=== PATIENT | male | born 1960 | race Caucasian/White ===

== ENCOUNTER → 2016-12-25 | Outpatient (CLI) | payer OTHER | LOC: RAD 06:47 | DX: M54.5 Low back pain (principal); Q76.2 Congenital spondylolisthesis; M51.86 Other intervertebral disc disorders, lumbar region; M48.06 Spinal stenosis, lumbar region; M51.27 Other intervertebral disc displacement, lumbosacral region ==

== ENCOUNTER → 2017-01-20 | Outpatient (REF) | LOC: LAB 07:46 | DX: M48.06 Spinal stenosis, lumbar region (principal); M51.36 Other intervertebral disc degeneration, lumbar region; M43.10 Spondylolisthesis, site unspecified ==

== ENCOUNTER → 2017-01-30 | Outpatient (CLI) | payer OTHER | LOC: RAD 11:29 | DX: M47.817 Spondylosis without myelopathy or radiculopathy, lumbosacral region (principal); M51.86 Other intervertebral disc disorders, lumbar region; M48.06 Spinal stenosis, lumbar region ==

== ENCOUNTER → 2017-04-18 | Outpatient (CLI) | payer OTHER | LOC: RAD 08:11 | DX: M48.061 Spinal stenosis, lumbar region without neurogenic claudication (principal); Z98.1 Arthrodesis status ==

== ENCOUNTER → 2017-05-19 | Outpatient (CLI) | payer OTHER | LOC: RAD 08:14 | DX: Z48.89 Encounter for other specified surgical aftercare (principal); M48.07 Spinal stenosis, lumbosacral region; Z96.89 Presence of other specified functional implants ==

== ENCOUNTER 2017-06-25 08:21 | Outpatient (RCR) | payer OTHER | END 2017-06-25 09:00 | disposition home or self-care (01) | LOC: PT 08:21 | DX: Z47.89 Encounter for other orthopedic aftercare (principal); M51.36 Other intervertebral disc degeneration, lumbar region; Z98.1 Arthrodesis status ==

== ENCOUNTER → 2019-02-10 | Outpatient (CLI) | payer OTHER | LOC: RAD 07:45 | DX: M48.061 Spinal stenosis, lumbar region without neurogenic claudication (principal); M54.16 Radiculopathy, lumbar region; Z87.39 Personal history of other diseases of the musculoskeletal system and connective tissue; Z98.890 Other specified postprocedural states | CPT/HCPCS: A9585 ==

== ENCOUNTER 2019-05-11 08:00 | Outpatient (RCR) | payer OTHER | END 2019-06-22 | disposition still patient (30) | LOC: PT | DX: M43.16 Spondylolisthesis, lumbar region (principal); Z98.1 Arthrodesis status ==

== ENCOUNTER → 2020-03-08 | Outpatient (CLI) | payer OTHER | LOC: AMSURD 09:16 | DX: Z00.00 Encounter for general adult medical examination without abnormal findings (principal); M54.16 Radiculopathy, lumbar region; I10 Essential (primary) hypertension; M79.676 Pain in unspecified toe(s); Z72.0 Tobacco use; Z98.890 Other specified postprocedural states ==

== ENCOUNTER → 2020-08-03 | Outpatient (CLI) | payer OTHER ==
[~2020-08-03] MED LIST: ADULT LOW DOSE81 MG PO; BACLOFEN20 MG PO; CARVEDILOL25 MG PO; DOCUSATE SOD100 MG PO; HCTZ 25MG25 MG PO; LISINOPRIL40 MG PO; NORVASC 5MG5 MG/TAB PO; OXYCODONE HYDRO1 TA1; ROBAXIN 75750 MG/TA1 PO; ROXICODONE 55 MG/TAB PO; SIMVASTATIN20 M1 PO
== END ==
LOC: RAD 16:10
DX: M47.816 Spondylosis without myelopathy or radiculopathy, lumbar region (principal); Z98.1 Arthrodesis status

== ENCOUNTER → 2020-08-31 | Outpatient (CLI) | payer OTHER | LOC: RAD 16:36 | DX: M51.26 Other intervertebral disc displacement, lumbar region (principal); Z98.1 Arthrodesis status ==

== ENCOUNTER 2020-09-04 11:38 | Emergency (ER) | payer OTHER ==
[2020-09-04] MEDS ORDERED: OXYCODONE HYDRO1 TA1 (11:53)
[2020-09-04] MEDS ORDERED: DOCUSATE SOD100 MG PO (11:54)
[2020-09-04] MEDS ORDERED: CARVEDILOL25 MG PO (11:54)
[2020-09-04] MEDS ORDERED: LISINOPRIL40 MG PO (11:54)
[2020-09-04] MEDS ORDERED: BACLOFEN20 MG PO (11:56)
[2020-09-04] MEDS ORDERED: SIMVASTATIN20 M1 PO (11:57)
[2020-09-04] MEDS ORDERED: HCTZ 25MG25 MG PO ×2 (11:57→11:58)
[2020-09-04] MEDS ORDERED: ADULT LOW DOSE81 MG PO (11:57)
[2020-09-04 12:12] LABS: EOS # 0.1 (0.04-0.40); EOS % 0.8 % (0.0-4.0); HEMATOCRIT 28.2 % (42.0-52.0); HEMOGLOBIN 9.1 g/dL (13.5-18.0); LYMPH# 1.2 (1.50-4.00); MEAN CELL VOLUME 89 fl (78-100); MEAN CORPUSCULAR HEMOGLOBIN 29 pg (27-31); MEAN CORPUSCULAR HGB CONC 32 g/dL (33-37); MEAN PLATELET VOLUME 9.6 fl (7.4-10.4); MONO # 0.5 (0.20-0.80); NEU # 5.6 (1.40-6.50); PLATELET COUNT 214 K/mm3 (130-400); RED BLOOD COUNT 3.16 M/mm3 (4.20-5.60); WHITE BLOOD COUNT 7.4 K/mm3 (4.8-10.8)
[2020-09-04 12:21] LABS: ALBUMIN 3.8 g/dL (3.5-5.0); POTASSIUM 3.8 mmol/L (3.5-5.1); SODIUM 139 mmol/L (136-145)
[2020-09-04 12:22] LABS: CALCIUM 8.3 mg/dL (8.3-10.5)
[2020-09-04 12:23] LABS: GLUCOSE 144 mg/dL (75-110)
[2020-09-04 12:25] LABS: CARBON DIOXIDE 20 mmol/L (22-29); TOTAL BILIRUBIN 0.4 mg/dL (0.2-1.2)
[2020-09-04 12:29] LABS: AST-SGOT 19 U/L (5-34)
[2020-09-04 12:30] LABS: ALT/SGPT 23 U/L (0-55); PROTHROMBIN TIME 10.4 SECONDS (9.0-12.0)
[2020-09-04 12:31] LABS: LIPASE 32 U/L (8-78)
[2020-09-04 12:38] LABS: TROPONIN-I < 0.03 ng/mL (<0.030)
[2020-09-04 12:41] LABS: PARTIAL THROMBOPLASTIN TIME 19.5 SECONDS (21.0-32.0)
[2020-09-04 17:25] VITALS: BP 110/69
== END 2020-09-04 15:56 | disposition short-term general hospital (02) ==
LOC: ED 11:38
PROVIDERS: Nurse Practitioner
DX: K92.2 Gastrointestinal hemorrhage, unspecified (principal); R55 Syncope and collapse; I10 Essential (primary) hypertension; G89.29 Other chronic pain; M54.9 Dorsalgia, unspecified; Z79.891 Long term (current) use of opiate analgesic; Z79.82 Long term (current) use of aspirin; Z20.822 Contact with and (suspected) exposure to COVID-19
CPT/HCPCS: C9113; J7030; Q9967

== ENCOUNTER → 2020-09-07 | Outpatient (CLI) | payer OTHER ==
[2020-09-04 17:25] VITALS: BP 110/69
== END ==
LOC: RAD 13:20
DX: M48.061 Spinal stenosis, lumbar region without neurogenic claudication (principal); M51.26 Other intervertebral disc displacement, lumbar region; M51.36 Other intervertebral disc degeneration, lumbar region
CPT/HCPCS: A9585

== ENCOUNTER → 2020-09-08 | Outpatient (CLI) | payer OTHER ==
[2020-09-04 17:25] VITALS: BP 110/69
[2020-09-08 10:32] LABS: EOS # 0.1 (0.04-0.40); EOS % 2.4 % (0.0-4.0); HEMATOCRIT 28.5 % (42.0-52.0); HEMOGLOBIN 9.1 g/dL (13.5-18.0); LYMPH# 1.5 (1.50-4.00); MEAN CELL VOLUME 91 fl (78-100); MEAN CORPUSCULAR HEMOGLOBIN 29 pg (27-31); MEAN CORPUSCULAR HGB CONC 32 g/dL (33-37); MEAN PLATELET VOLUME 9.3 fl (7.4-10.4); MONO # 0.6 (0.20-0.80); NEU # 3.3 (1.40-6.50); PLATELET COUNT 237 K/mm3 (130-400); RED BLOOD COUNT 3.15 M/mm3 (4.20-5.60); RED CELL DISTRIBUTION WIDTH 13.8 % (11.5-14.5); WHITE BLOOD COUNT 5.4 K/mm3 (4.8-10.8)
== END ==
LOC: LAB 10:15
PROVIDERS: Physician Assistant
DX: K92.2 Gastrointestinal hemorrhage, unspecified (principal)

== ENCOUNTER → 2020-10-17 | Outpatient (CLI) | payer OTHER ==
[2020-10-17 09:55] LABS: BASO # 0.04 (0.02-0.10); EOS # 0.14 (0.04-0.40); EOS % 3.3 % (0.0-4.0); HEMATOCRIT 42.4 % (42.0-52.0); HEMOGLOBIN 13.5 g/dL (13.5-18.0); LYMPH# 1.18 (1.50-4.00); MEAN CELL VOLUME 87 fl (78-100); MEAN CORPUSCULAR HEMOGLOBIN 28 pg (27-31); MEAN CORPUSCULAR HGB CONC 32 g/dL (33-37); MEAN PLATELET VOLUME 9.2 fl (7.4-10.4); MONO # 0.38 (0.20-0.80); NEU # 2.55 (1.40-6.50); PLATELET COUNT 279 K/mm3 (130-400); RED BLOOD COUNT 4.89 M/mm3 (4.20-5.60); RED CELL DISTRIBUTION WIDTH 13.6 % (11.5-14.5); WHITE BLOOD COUNT 4.3 K/mm3 (4.8-10.8)
== END ==
LOC: LAB 09:42
PROVIDERS: Physician Assistant
DX: D64.9 Anemia, unspecified (principal)

== ENCOUNTER 2020-10-25 07:58 | Outpatient (RCR) | payer OTHER ==
[~2020-10-25 07:58] MED LIST changes: -NORVASC 5MG5 MG/TAB PO; -ROBAXIN 75750 MG/TA1 PO; -ROXICODONE 55 MG/TAB PO
== END 2020-11-07 17:00 | disposition home or self-care (01) ==
LOC: PT 07:58
DX: M54.5 Low back pain (principal)

== ENCOUNTER → 2020-12-28 | Outpatient (CLI) | payer OTHER ==
[~2020-12-28] MED LIST changes: +NORVASC 5MG5 MG/TAB PO; +ROBAXIN 75750 MG/TA1 PO; +ROXICODONE 55 MG/TAB PO
== END ==
LOC: LAB 15:59
DX: M48.061 Spinal stenosis, lumbar region without neurogenic claudication (principal); M51.26 Other intervertebral disc displacement, lumbar region

== ENCOUNTER → 2021-02-20 | Outpatient (CLI) | payer OTHER | LOC: LAB 13:50 | DX: Z20.822 Contact with and (suspected) exposure to COVID-19 (principal) ==

== ENCOUNTER 2021-02-28 17:22 | Emergency (ER) | payer OTHER ==
[~2021-02-28] VITALS: Ht 182.9 cm; Wt 128.2 kg
[~2021-02-28 17:22] MED LIST changes: -NORVASC 5MG5 MG/TAB PO; -ROBAXIN 75750 MG/TA1 PO; -ROXICODONE 55 MG/TAB PO
[2021-02-28] MEDS ORDERED: ROXICODONE 55 MG/TAB PO (17:37)
[2021-02-28] MEDS ORDERED: ROBAXIN 75750 MG/TA1 PO (17:38)
[2021-02-28] MEDS ORDERED: NORVASC 5MG5 MG/TAB PO (17:40)
[2021-02-28 18:33] LABS: BASO # 0.03 (0.02-0.10); EOS # 0.08 (0.04-0.40); EOS % 1.2 % (0.0-4.0); HEMATOCRIT 29.6 % (42.0-52.0); HEMOGLOBIN 9.6 g/dL (13.5-18.0); LYMPH# 1.04 (1.50-4.00); MEAN CELL VOLUME 91 fl (78-100); MEAN CORPUSCULAR HEMOGLOBIN 29 pg (27-31); MEAN CORPUSCULAR HGB CONC 32 g/dL (33-37); MEAN PLATELET VOLUME 8.6 fl (7.4-10.4); MONO # 0.65 (0.20-0.80); NEU # 4.73 (1.40-6.50); PLATELET COUNT 233 K/mm3 (130-400); RED BLOOD COUNT 3.27 M/mm3 (4.20-5.60); RED CELL DISTRIBUTION WIDTH 14.3 % (11.5-14.5); WHITE BLOOD COUNT 6.5 K/mm3 (4.8-10.8)
[2021-02-28 18:44] LABS: ALBUMIN 3.8 g/dL (3.5-5.0)
[2021-02-28 18:46] LABS: CALCIUM 9.5 mg/dL (8.3-10.5)
[2021-02-28 18:47] LABS: TOTAL PROTEIN 6.7 g/dL (6.4-8.3)
[2021-02-28 18:49] LABS: TOTAL BILIRUBIN 0.5 mg/dL (0.2-1.2)
[2021-02-28 19:45] VITALS: BP 120/79
== END 2021-02-28 19:45 | disposition home or self-care (01) ==
LOC: ED 17:22
PROVIDERS: Physician Assistant
DX: K59.00 Constipation, unspecified (principal); I10 Essential (primary) hypertension; G89.29 Other chronic pain; M54.5 Low back pain; Z87.891 Personal history of nicotine dependence; Z79.899 Other long term (current) drug therapy; Z79.891 Long term (current) use of opiate analgesic

== ENCOUNTER → 2021-03-16 | Outpatient (CLI) | payer OTHER ==
[~2021-03-16] MED LIST changes: +NORVASC 5MG5 MG/TAB PO; +ROBAXIN 75750 MG/TA1 PO; +ROXICODONE 55 MG/TAB PO
[2021-03-16 11:13] LABS: BASO # 0.06 K/mm3 (0.02-0.10); EOS # 0.15 K/mm3 (0.04-0.40); EOS % 2.1 % (0.0-4.0); HEMATOCRIT 35.3 % (42.0-52.0); HEMOGLOBIN 11.2 g/dL (13.5-18.0); LYMPH# 1.82 K/mm3 (1.50-4.00); MEAN CELL VOLUME 88 fl (78-100); MEAN CORPUSCULAR HEMOGLOBIN 28 pg (27-31); MEAN CORPUSCULAR HGB CONC 32 g/dL (33-37); MEAN PLATELET VOLUME 8.5 fl (7.4-10.4); MONO # 0.58 K/mm3 (0.20-0.80); NEU # 4.67 K/mm3 (1.40-6.50); RED BLOOD COUNT 4.01 M/mm3 (4.20-5.60); RED CELL DISTRIBUTION WIDTH 13.6 % (11.5-14.5); WHITE BLOOD COUNT 7.3 K/mm3 (4.8-10.8)
[2021-03-16 11:15] LABS: PLATELET COUNT 565 K/mm3 (130-400)
[2021-03-16 11:29] LABS: POTASSIUM 3.7 mmol/L (3.5-5.1)
[2021-03-16 11:31] LABS: CALCIUM 10.4 mg/dL (8.3-10.5)
== END ==
LOC: LAB 11:03
PROVIDERS: Physician Assistant
DX: D64.9 Anemia, unspecified (principal); Z98.890 Other specified postprocedural states

== ENCOUNTER 2021-04-19 08:54 | Outpatient (RCR) | payer OTHER | END 2021-06-08 | disposition home or self-care (01) | LOC: PT 08:54 | DX: M43.06 Spondylolysis, lumbar region (principal) ==

== ENCOUNTER → 2021-06-07 | Outpatient (CLI) | payer OTHER | LOC: RAD 09:31 | DX: M43.16 Spondylolisthesis, lumbar region (principal); G95.9 Disease of spinal cord, unspecified; Z98.1 Arthrodesis status ==

== ENCOUNTER 2021-06-13 08:30 | Outpatient (RCR) | payer OTHER | END 2021-07-09 | disposition home or self-care (01) | LOC: PT | DX: M43.06 Spondylolysis, lumbar region (principal) ==

== ENCOUNTER → 2023-07-17 | Outpatient (CLI) | payer BC ==
[~2023-07-17] MED LIST changes: +MELOXICAM15 MG PO
== END ==
LOC: RAD 16:24
DX: M47.816 Spondylosis without myelopathy or radiculopathy, lumbar region (principal); M16.12 Unilateral primary osteoarthritis, left hip; M25.551 Pain in right hip; Z98.890 Other specified postprocedural states

== ENCOUNTER → 2023-08-06 | Outpatient (CLI) | payer BC ==
[2023-08-06 18:19] LABS: BASO # 0.06 K/mm3 (0.02-0.10); EOS # 0.32 K/mm3 (0.04-0.40); EOS % 5.5 % (0.0-4.0); HEMATOCRIT 41.2 % (42.0-52.0); HEMOGLOBIN 13.4 g/dL (13.5-18.0); MEAN CELL VOLUME 93 fl (78-100); MEAN CORPUSCULAR HEMOGLOBIN 30 pg (27-31); MEAN CORPUSCULAR HGB CONC 33 g/dL (33-37); MEAN PLATELET VOLUME 9.5 fl (7.4-10.4); MONO # 0.57 K/mm3 (0.20-0.80); NEU # 2.91 K/mm3 (1.40-6.50); PLATELET COUNT 248 K/mm3 (130-400); RED BLOOD COUNT 4.41 M/mm3 (4.20-5.60); RED CELL DISTRIBUTION WIDTH 13.6 % (11.5-14.5); WHITE BLOOD COUNT 5.9 K/mm3 (4.8-10.8)
== END ==
LOC: LAB 16:06
PROVIDERS: Physician Assistant
DX: D64.9 Anemia, unspecified (principal)

== ENCOUNTER → 2024-02-13 | Outpatient (CLI) | payer BC | LOC: RAD 09:28 | DX: M51.36 Other intervertebral disc degeneration, lumbar region (principal); M51.35 Other intervertebral disc degeneration, thoracolumbar region; M43.16 Spondylolisthesis, lumbar region; M48.061 Spinal stenosis, lumbar region without neurogenic claudication; Z98.1 Arthrodesis status ==